=== PATIENT | female | born 1965 | race Caucasian/White ===

== ENCOUNTER 2017-10-25 12:05 | Observation (INO) | payer MEDICARE, MEDICAID ==
[~2017-10-25] VITALS: Ht 154.9 cm; Wt 150.0 kg
[2017-10-25 13:20] LABS: BASOPHILS # (AUTO) 0.02 x10^3/uL (0-0.1); BASOPHILS % (AUTO) 0 % (0-1); EOSINOPHILS # (AUTO) 0.22 x10^3/uL (0-0.4); EOSINOPHILS % (AUTO) 4 % (1-7); LYMPHOCYTES # (AUTO) 1.19 x10^3/uL (1-3.4); LYMPHOCYTES % (AUTO) 22 % (22-44); MD NO; MEAN CORPUSCULAR HEMOGLOBIN 28.4 pg (27.0-34.8); MEAN CORPUSCULAR HGB CONC 33.2 g/dL (32.4-35.8); MEAN CORPUSCULAR VOLUME 85.6 fL (80-100); MEAN PLATELET VOLUME 7.7 fL (7.4-10.4); MONOCYTES # (AUTO) 0.43 x10^3/uL (0.2-0.8); MONOCYTES % (AUTO) 8 % (2-9); NEUTROPHILS # (AUTO) 3.54 x10^3/uL (1.8-6.8); NEUTROPHILS % (AUTO) 66 % (42-75); PLATELET COUNT 278 x10^3/uL (130-400); RED BLOOD COUNT 4.73 x10^6/uL (3.82-5.3); RED CELL DISTRIBUTION WIDTH 14.8 % (9.6-15.2)
[2017-10-25 13:32] LABS: ALBUMIN 3.6 g/dL (3.4-5.0); ANION GAP 8 mmol/L (5-15); CALCIUM 8.8 mg/dL (8.5-10.1); CHLORIDE 110 mmol/L (98-107)
[2017-10-25 13:35] LABS: ALANINE AMINOTRANSFERASE 19 U/L (12-78); ALKALINE PHOSPHATASE 104 U/L (45-117); BILIRUBIN,TOTAL 0.5 mg/dL (0.2-1.0); CREATININE 0.96 mg/dL (0.55-1.02); TOTAL PROTEIN 7.5 g/dL (6.4-8.2); TROPONIN I < 0.015 ng/mL (0.000-0.045)
[2017-10-25] MEDS ORDERED: GABA300C10 PO (14:35)
[2017-10-25] MEDS ORDERED: BUPR-173 PO (14:35)
[2017-10-25] MEDS ORDERED: OMEP-110 PO (14:35)
[2017-10-25] MEDS ORDERED: FEXO1TAB29 PO (14:35)
[2017-10-25] MEDS ORDERED: ONDA8TAB9 PO (14:35)
[2017-10-25] MEDS ORDERED: DOXE3TAB3 PO (14:35)
[2017-10-25] MEDS ORDERED: PRAZ1CAP2 PO (14:35)
[2017-10-25] MEDS ORDERED: PRAM1.5T7 PO (14:35)
[2017-10-25] MEDS ORDERED: AZAT50TA9 PO (14:35)
[2017-10-25] MEDS ORDERED: BALS750C14 PO ×2 (14:35)
[2017-10-25 14:40] LABS: THYROID STIMULATING HORMONE 2.33 mIU/L (0.358-3.740)
[2017-10-25] MEDS ORDERED: ONDANSETRON ODT 4 MG PO PRN (15:00)
[2017-10-25] MEDS ORDERED: ONDANSETRON 8 MG TABLET PO PRN (15:00)
[2017-10-25] MEDS ORDERED: TEMAZEPAM 15 MG CAPSULE PO PRN (15:00)
[2017-10-25] MEDS ORDERED: NITROGLYCERIN 0.4 MG BOTTLE (25 TABS) SL PRN (15:00)
[2017-10-25] MEDS ORDERED: ONDANSETRON 2MG/ML, 2ML IVPush PRN (15:00)
[2017-10-25] MEDS ORDERED: morphine SULFATE 10 MG/ML, 1ML IVPush PRN (15:00)
[2017-10-25] MEDS ORDERED: LABETALOL 5MG/ML, 20ML IVPush PRN (15:00)
[2017-10-25 15:29] LABS: TROPONIN I < 0.015 ng/mL (0.000-0.045)
[2017-10-25 15:48] LABS: MICROSCOPIC AUTO
[2017-10-25 15:54] LABS: CULTURE INDICATED? YES
[2017-10-25] MEDS: ENOXAPARIN 40 MG/0.4 ML SQ SCH (16:25)
[2017-10-25] MEDS: GABAPENTIN 100 MG CAPSULE PO SCH ×2 (16:25→21:00)
[2017-10-25 16:48] VITALS: BP 112/70
[2017-10-25 19:51] VITALS: BP 114/75
[2017-10-25] MEDS: DOXEPIN HCL PO SCH (21:00)
[2017-10-25] MEDS: BALSALAZIDE DISODIUM HOMEMEDPO SCH (21:00)
[2017-10-25 21:23] LABS: TROPONIN I < 0.015 ng/mL (0.000-0.045)
[2017-10-25] MEDS: PRAMIPEXOLE 0.5MG TABLET PO SCH (21:41)
[2017-10-25] MEDS: PRAZOSIN 1 MG CAPSULE PO SCH (21:42)
[2017-10-25] MEDS: OMEPRAZOLE 20 MG CAPSULE.DR PO SCH (21:42)
[2017-10-25 23:11] VITALS: BP 115/81
[2017-10-25 23:12] VITALS: BP 137/84
[2017-10-25 23:13] VITALS: BP 130/88
[2017-10-26 03:59] VITALS: BP 97/61
[2017-10-26 05:07] LABS: ALBUMIN 3.2 g/dL (3.4-5.0); ANION GAP 11 mmol/L (5-15); CALCIUM 8.4 mg/dL (8.5-10.1); CHLORIDE 110 mmol/L (98-107)
[2017-10-26 05:16] LABS: ALANINE AMINOTRANSFERASE 15 U/L (12-78); ALKALINE PHOSPHATASE 91 U/L (45-117); BILIRUBIN,TOTAL 0.5 mg/dL (0.2-1.0); CHOL/HDL RATIO 4.8; CHOLESTEROL, TOTAL 163 mg/dL (140-239); CREATININE 0.89 mg/dL (0.55-1.02); HDL CHOL % 21 % (28-40); HDL CHOLESTEROL (DIRECT) 34 mg/dL (40-60); LDL CHOLESTEROL,CALCULATED 109 mg/dL (54-169); LDL/HDL RATIO 3.2 (0.5-3.0); TOTAL PROTEIN 6.7 g/dL (6.4-8.2); TRIGLYCERIDES 98 mg/dL (50-200); VLDL CHOLESTEROL 20 mg/dL (0-25)
[2017-10-26 05:29] LABS: SEDIMENTATION RATE 25 mm/hr (0-20)
[2017-10-26] MEDS: ASPIRIN 325 MG TABLET EC PO SCH (05:50)
[2017-10-26 06:47] LABS: BASOPHILS # (AUTO) 0.05 x10^3/uL (0-0.1); BASOPHILS % (AUTO) 1 % (0-1); EOSINOPHILS # (AUTO) 0.21 x10^3/uL (0-0.4); EOSINOPHILS % (AUTO) 4 % (1-7); HCT (SEDRATE) 38.8 % (34.6-47.8); LYMPHOCYTES # (AUTO) 1.19 x10^3/uL (1-3.4); LYMPHOCYTES % (AUTO) 23 % (22-44); MD NO; MEAN CORPUSCULAR HEMOGLOBIN 28.1 pg (27.0-34.8); MEAN CORPUSCULAR VOLUME 85.4 fL (80-100); MEAN PLATELET VOLUME 8.4 fL (7.4-10.4); MONOCYTES # (AUTO) 0.36 x10^3/uL (0.2-0.8); MONOCYTES % (AUTO) 7 % (2-9); NEUTROPHILS # (AUTO) 3.34 x10^3/uL (1.8-6.8); NEUTROPHILS % (AUTO) 65 % (42-75); PLATELET COUNT 257 x10^3/uL (130-400); RED BLOOD COUNT 4.54 x10^6/uL (3.82-5.3)
[2017-10-26] MEDS ORDERED: REGADENOSON 0.4 MG/5 ML SYRINGE ONE (07:48)
[2017-10-26 08:04] VITALS: BP 125/80
[2017-10-26] MEDS ORDERED: BALSALAZIDE DISODIUM 750 MG PO SCH (09:00)
[2017-10-26] MEDS: BALSALAZIDE DISODIUM PO SCH (10:39)
[2017-10-26] MEDS: GABAPENTIN 100 MG CAPSULE PO SCH ×3 (10:41→21:44)
[2017-10-26] MEDS: AZATHIOPRINE 50 MG TABLET PO SCH (10:41)
[2017-10-26] MEDS: BUPROPION SR 100 MG TABLET PO SCH (10:41)
[2017-10-26] MEDS: OMEPRAZOLE 20 MG CAPSULE.DR PO SCH ×2 (10:41→21:44)
[2017-10-26 13:26] VITALS: BP 121/82
[2017-10-26] MEDS ORDERED: COSYNTROPIN 0.25 MG IM ONE (16:00)
[2017-10-26] MEDS: ENOXAPARIN 40 MG/0.4 ML SQ SCH (16:32)
[2017-10-26 19:46] VITALS: BP 115/72
[2017-10-26] MEDS: PRAMIPEXOLE 0.5MG TABLET PO SCH (21:43)
[2017-10-26] MEDS: PRAZOSIN 1 MG CAPSULE PO SCH (21:43)
[2017-10-26] MEDS: DOXEPIN HCL PO SCH (21:45)
[2017-10-26] MEDS: BALSALAZIDE DISODIUM HOMEMEDPO SCH (21:46)
[2017-10-27 01:27] VITALS: BP 105/70
[2017-10-27] MEDS: ASPIRIN 325 MG TABLET EC PO SCH (05:52)
[2017-10-27 08:13] VITALS: BP 96/65
[2017-10-27] MEDS: AZATHIOPRINE 50 MG TABLET PO SCH (09:09)
[2017-10-27] MEDS: BUPROPION SR 100 MG TABLET PO SCH (09:09)
[2017-10-27] MEDS: GABAPENTIN 100 MG CAPSULE PO SCH (09:09)
[2017-10-27] MEDS: OMEPRAZOLE 20 MG CAPSULE.DR PO SCH (09:09)
[2017-10-27] MEDS: BALSALAZIDE DISODIUM PO SCH (09:09)
== END 2017-10-27 10:12 | disposition home or self-care (01) ==
LOC: ED 14:14 → EDIP 15:00 → INTOOBSV 15:00 → 5SO 15:47 → DCLOUNGE 10-27 10:00
PROVIDERS: ADMIT Internal Medicine Pulmonary Disease; ATTEND Internal Medicine Pulmonary Disease
DX: R07.9 Chest pain, unspecified (principal); R06.02 Shortness of breath; R42 Dizziness and giddiness; G62.9 Polyneuropathy, unspecified; K21.9 Gastro-esophageal reflux disease without esophagitis; F32.9 Major depressive disorder, single episode, unspecified; F43.10 Post-traumatic stress disorder, unspecified; K51.90 Ulcerative colitis, unspecified, without complications; E66.01 Morbid (severe) obesity due to excess calories; Z88.9 Allergy status to unspecified drugs, medicaments and biological substances
CPT/HCPCS: 36415; 71045; 78452; 80053; 80061; 81001; 82533; 82962; 83735; 83880; 84436; 84443; 84484; 85025; 85379; 85651; 86140; 87086; 93005; 93017; 96372; 96374; 96375; 99285; A9502; C9898; G0378; J0834; J1650; J2270; J2405; J2785; J7500; Q0162

== ENCOUNTER 2017-11-03 02:55 | Emergency (ER) | payer MEDICAID, MEDICARE ==
[~2017-11-03] VITALS: Ht 154.9 cm; Wt 150.0 kg
[~2017-11-03 02:55] MED LIST: AZAT50TA9 PO; BALS750C14 PO; BUPR-173 PO; DOXE3TAB3 PO; FEXO1TAB29 PO; GABA300C10 PO; OMEP-110 PO; ONDA8TAB9 PO; PRAM1.5T7 PO; PRAZ1CAP2 PO
[2017-11-03] MEDS ORDERED: SODIUM CHLORIDE FLUSH 10ML SYR IVF ONE (03:30)
[2017-11-03] MEDS ORDERED: MECLIZINE CHEWABLE 25 MG TAB PO ONE (03:30)
[2017-11-03] MEDS ORDERED: ONDANSETRON 2MG/ML, 2ML IVPush ONE (03:30)
[2017-11-03] MEDS ORDERED: SODIUM CHLORIDE 0.9% 1,000ML IVBOLUS ONE (03:30)
[2017-11-03 03:41] LABS: BASOPHILS # (AUTO) 0.03 x10^3/uL (0-0.1); BASOPHILS % (AUTO) 0 % (0-1); EOSINOPHILS # (AUTO) 0.26 x10^3/uL (0-0.4); EOSINOPHILS % (AUTO) 3 % (1-7); LYMPHOCYTES # (AUTO) 1.12 x10^3/uL (1-3.4); LYMPHOCYTES % (AUTO) 13 % (22-44); MD NO; MEAN CORPUSCULAR HEMOGLOBIN 28.2 pg (27.0-34.8); MEAN CORPUSCULAR HGB CONC 33.3 g/dL (32.4-35.8); MEAN CORPUSCULAR VOLUME 84.6 fL (80-100); MEAN PLATELET VOLUME 7.6 fL (7.4-10.4); MONOCYTES # (AUTO) 0.53 x10^3/uL (0.2-0.8); MONOCYTES % (AUTO) 6 % (2-9); NEUTROPHILS # (AUTO) 6.57 x10^3/uL (1.8-6.8); NEUTROPHILS % (AUTO) 77 % (42-75); PLATELET COUNT 270 x10^3/uL (130-400); RED BLOOD COUNT 4.66 x10^6/uL (3.82-5.3); RED CELL DISTRIBUTION WIDTH 14.8 % (9.6-15.2)
[2017-11-03] MEDS ORDERED: MECLIZINE CHEWABLE 25 MG TAB ONE (03:42)
[2017-11-03 04:01] LABS: ALANINE AMINOTRANSFERASE 13 U/L (12-78); ALBUMIN 3.4 g/dL (3.4-5.0); ANION GAP 7 mmol/L (5-15); CALCIUM 8.9 mg/dL (8.5-10.1); CHLORIDE 112 mmol/L (98-107); CREATININE 0.98 mg/dL (0.55-1.02)
[2017-11-03 04:06] LABS: ALKALINE PHOSPHATASE 99 U/L (45-117); BILIRUBIN,TOTAL 0.4 mg/dL (0.2-1.0); TOTAL PROTEIN 7.1 g/dL (6.4-8.2); TROPONIN I < 0.015 ng/mL (0.000-0.045)
[2017-11-03 05:52] VITALS: BP 107/59
== END 2017-11-03 05:54 | disposition home or self-care (01) ==
LOC: ED 03:14
DX: R42 Dizziness and giddiness (principal); R51 Headache; H53.149 Visual discomfort, unspecified
CPT/HCPCS: 36415; 70450; 80053; 84484; 85025; 93005; 96360; 99285; J7030

== ENCOUNTER 2017-12-02 18:15 | Emergency (ER) | payer MEDICARE ==
[~2017-12-02] VITALS: Ht 154.9 cm; Wt 145.5 kg
[2017-12-02] MEDS ORDERED: DIPHENHYDRAMINE 50 MG/ML, 1ML IVPush ONE ×2 (19:00→19:30)
[2017-12-02] MEDS ORDERED: PROCHLORPERAZINE 5 MG/ML, 2ML IVPush ONE (19:00)
[2017-12-02] MEDS ORDERED: SODIUM CHLORIDE FLUSH 10ML SYR IVF ONE (19:00)
[2017-12-02] MEDS ORDERED: SODIUM CHLORIDE 0.9% 1,000ML IVBOLUS ONE (19:00)
[2017-12-02] MEDS ORDERED: PROCHLORPERAZINE 5 MG/ML, 2ML ONE (19:15)
[2017-12-02] MEDS ORDERED: DIPHENHYDRAMINE 50 MG/ML, 1ML ONE (19:16)
[2017-12-02] MEDS ORDERED: OMNIPAQUE 350 MG/ML, 100ML BOTTLE ONE (21:29)
[2017-12-02 22:09] VITALS: BP 136/60
== END 2017-12-02 22:54 | disposition home or self-care (01) ==
LOC: ED 21:57
DX: G44.219 Episodic tension-type headache, not intractable (principal); Z88.2 Allergy status to sulfonamides; Z88.1 Allergy status to other antibiotic agents; Z88.5 Allergy status to narcotic agent; Z88.6 Allergy status to analgesic agent
CPT/HCPCS: 70496; 70498; 96361; 96374; 96375; 99284; J0780; J1200; J7030; Q9967

== ENCOUNTER 2018-06-17 16:27 | Emergency (ER) | payer MEDICARE ==
[~2018-06-17] VITALS: Ht 154.9 cm; Wt 150.0 kg
[2018-06-17 17:47] LABS: MICROSCOPIC NOT IND
[2018-06-17 17:51] LABS: BASOPHILS % (AUTO) 0 % (0-1); EOSINOPHILS # (AUTO) 0.02 x10^3/uL (0-0.4); EOSINOPHILS % (AUTO) 0 % (1-7); LYMPHOCYTES # (AUTO) 0.53 x10^3/uL (1-3.4); LYMPHOCYTES % (AUTO) 7 % (22-44); MD NO; MEAN CORPUSCULAR HEMOGLOBIN 29.2 pg (27.0-34.8); MEAN CORPUSCULAR VOLUME 85.8 fL (80-100); MEAN PLATELET VOLUME 7.9 fL (7.4-10.4); MONOCYTES # (AUTO) 0.25 x10^3/uL (0.2-0.8); MONOCYTES % (AUTO) 4 % (2-9); NEUTROPHILS # (AUTO) 6.43 x10^3/uL (1.8-6.8); NEUTROPHILS % (AUTO) 89 % (42-75); PLATELET COUNT 256 x10^3/uL (130-400); RED BLOOD COUNT 5.04 x10^6/uL (3.82-5.3); RED CELL DISTRIBUTION WIDTH 14.8 % (9.6-15.2)
[2018-06-17 17:55] LABS: CULTURE INDICATED? NO
[2018-06-17 17:57] LABS: ALANINE AMINOTRANSFERASE 19 U/L (12-78); ALBUMIN 3.5 g/dL (3.4-5.0); ANION GAP 7 mmol/L (5-15); CALCIUM 8.5 mg/dL (8.5-10.1); CHLORIDE 112 mmol/L (98-107); CREATININE 0.93 mg/dL (0.55-1.02)
[2018-06-17 17:59] LABS: ALKALINE PHOSPHATASE 125 U/L (45-117); BILIRUBIN,TOTAL 0.9 mg/dL (0.2-1.0); TOTAL PROTEIN 7.2 g/dL (6.4-8.2)
[2018-06-17] MEDS ORDERED: METOCLOPRAMIDE 5 MG/ML, 2ML ONE (18:11)
[2018-06-17] MEDS ORDERED: MORPHINE SULFATE 4 MG/ML, 1ML ONE (18:11)
[2018-06-17] MEDS ORDERED: MORPHINE SULFATE 4 MG/ML, 1ML IVPush PRN (18:30)
[2018-06-17] MEDS ORDERED: METOCLOPRAMIDE 5 MG/ML, 2ML IVPush ONE (18:30)
[2018-06-17] MEDS ORDERED: OMNIPAQUE 350 MG/ML, 100ML BOTTLE ONE (18:47)
[2018-06-17 19:08] VITALS: BP 120/70
== END 2018-06-17 20:17 | disposition home or self-care (01) ==
LOC: ED 16:56
DX: K51.90 Ulcerative colitis, unspecified, without complications (principal); K52.9 Noninfective gastroenteritis and colitis, unspecified; J45.909 Unspecified asthma, uncomplicated; F32.9 Major depressive disorder, single episode, unspecified
CPT/HCPCS: 36415; 74177; 80053; 81003; 83690; 85025; 96374; 96375; 99285; J2765; Q9967